=== PATIENT | female | born 1965 | race American Indian/Alaskan Native ===

== ENCOUNTER 2019-08-06 06:28 | Day surgery (SDC) | payer OTHER ==
[2019-08-06] MEDS ORDERED: SODIUM CHLORIDE 0.9% 1000 ML 1,000 ML IV SCH (07:00)
--- NOTE | 2019-08-06 07:31 | Anesthesia Consultation ---
Anesthesia Consult and Med Hx Date of service: 08/06/19 - Airway Anesthetic Teeth Evaluation: Dentures (upper), Partials (bottom) ROM Head & Neck: Adequate Mental/Hyoid Distance: Adequate Mallampati Class: Class III Intubation Access Assessment: Possibly Difficult - Pre-Operative Health Status ASA Pre-Surgery Classification: ASA2 Proposed Anesthetic Plan: MAC - Cardiovascular System Hx Hypertension: Yes - Other Systems Hx Cancer: Yes (h/o rectal CA, s/p chemo, radiation)
--- NOTE | 2019-08-06 07:32 | Anesthesia Day of Surgery ---
Anesthesia Day of Surgery - Day of Surgery Patient Examined: Yes Patient H&P Reviewed: Yes Patient is NPO: Yes
[2019-08-06] MEDS ORDERED: PROPOFOL 200 MG/20 ML VIAL IV ONE ×2 (08:53)
[2019-08-06] MEDS ORDERED: WATER FOR IRRIG STERILE 250 ML BOTTLE IR ONE (08:54)
[2019-08-06] MEDS ORDERED: WATER FOR IRRIG STERILE 1,000 ML BOTTLE ONE (08:54)
[2019-08-06] MEDS ORDERED: LIDOCAINE MPF (2%) 20 MG/1 ML VIAL 5 ML ONE (09:00)
--- NOTE | 2019-08-06 09:45 | Short Stay Summary ---
Short Stay Documentation Date of service: 08/06/19 Narrative H&P: Patient is a 53 yo aaf with h/o rectal cancer who presents for surveillance colonoscopy. She was diagnosed with rectal cancer during colonoscopy in November of this year at [facility]. She has been receiving chemo/radiation treatment. presents for surveillance. No new gi complaints/symptoms at this time. - History Past Medical History: other (rectal cancer) Past Surgical History: Other Social history: no significant social history - Allergies and Medications Current Medications: Allergies No Known Allergies Allergy (Unverified 08/05/19 16:27) Home Medications Medication Instructions Recorded Confirmed Last Taken Type Aspirin 81 mg PO DAILY 08/05/19 08/05/19 Unknown History Losartan 08/05/19 Unknown History Active Medications Sodium Chloride (Nacl 0.9% 1000 Ml) 1,000 mls @ 50 mls/hr IV DIRECT DEN Last Admin: 08/06/19 08:10 Dose: 50 mls/hr Documented by: - Physical exam General appearance: no acute distress Lungs: Clear to auscultation Heart: Regular rate Gastrointestinal: normal - Brief post op/procedure progress note Date of procedure: 08/06/19 Pre-op diagnosis: Surveillance for history of rectal cancer Post-op diagnosis: other (No obvious/residual mass in the rectum. Mucosa appeared normal. biopsies were obtained) Procedure: Colonoscopy with biopsies Anesthesia: MAC Findings: Normal colonoscopy; no mass/residual lesions seen in the rectum Surgeon: KSENIA CUNNINGHAM Estimated blood loss: minimal Pathology: list (Jar A - rectal biopsies) Specimen disposition: to lab Condition: stable - Disposition Condition at discharge: Good Disposition: DC-01 TO HOME OR SELFCARE Short Stay Discharge Plan Follow up with: MARQUIS ROBERT MD [Primary Care Provider] - 7 Days
--- NOTE | 2019-08-06 09:48 | Operative Report ---
Operative Report Operative Report: Colonoscopy Procedure Note with Biopsies Date of procedure: 08/06/2019 Endoscopist: Quinton Petersen Pre-op diagnosis: Surveillance for history of rectal cancer Post-op diagnosis: Normal colonoscopy Anesthesia: MAC Complications: No immediate complications Estimated blood loss: minimal Procedure: After consent was obtained, the patient was placed in the left lateral decubitus position. The olympus colonoscope was inserted into the patient's rectum under direct vision, and advanced to the cecum without difficulty. The patient tolerated the procedure well. The views of the mucosa were good/adequate. The quality of prep was fair. The patient's vital signs were monitored continuously throughout the procedure. Findings: The entire examined colon appeared normal. Specifically, the rectum appeared normal without any mass lesion or residual growth seen. Multiple biopsies were obtained. Impression: 1. Normal colonoscopy without rectal mass seen. Rectal biopsies obtained. Recommendations: -follow up with oncologist as scheduled -repeat colonoscopy in 1 year for surveillance -follow up pathology results
[2019-08-06 10:14] VITALS: BP 149/73
--- NOTE | 2019-08-06 15:14 | Post Anesthesia Evaluation ---
- Post Anesthesia Evaluation Patient Participated: Yes Airway Patent: Yes Stable Respiratory Function: Yes Nausea/Vomiting: No Temp > 96.8F: Yes Pain Manageable: Yes Adequeate Hydration: Yes Anesthesia Complications: No Block Receding Appropriately: Not Applicable Patient on Ventilator: No
== END 2019-08-06 10:30 | disposition home or self-care (01) ==
LOC: GIO 06:28
PROVIDERS: ATTEND Internal Medicine Gastroenterology
DX: Z08 Encounter for follow-up examination after completed treatment for malignant neoplasm (principal); K62.89 Other specified diseases of anus and rectum; I10 Essential (primary) hypertension; Z79.82 Long term (current) use of aspirin; Z79.899 Other long term (current) drug therapy; Z98.890 Other specified postprocedural states; Z90.710 Acquired absence of both cervix and uterus; Z85.048 Personal history of other malignant neoplasm of rectum, rectosigmoid junction, and anus
CPT/HCPCS: 45380; 88305; J2704; J7030